=== PATIENT | female | born 1960 | race Caucasian/White ===

== ENCOUNTER → 2020-03-16 17:15 | Outpatient (CLI) | payer MEDICARE, SELFPAY ==
[2020-03-18 18:09] LABS: RA Latex Turbid. 12.1 IU/mL (0.0-13.9)
== END ==
PROVIDERS: Visit Provider Family Medicine
DX: M54.9 Dorsalgia, unspecified (principal)
CPT/HCPCS: 86140; 86431

== ENCOUNTER 2023-09-27 18:19 | Outpatient (CLI) | payer MEDICARE, SELFPAY ==
[2023-09-27 18:27] LABS: Coronavirus 19, PCR Not Detected (NotDetected); Influenza A, PCR Not Detected (NotDetected); Influenza B, PCR Not Detected (NotDetected)
== END 2023-09-27 23:59 ==
LOC: LAB.DROPOF 18:19
PROVIDERS: PCP Nurse Practitioner; Visit Provider Nurse Practitioner
DX: R06.02 Shortness of breath (principal); R05.9 Cough, unspecified; R09.81 Nasal congestion
CPT/HCPCS: 87636